=== PATIENT | female | born 1970 | race Caucasian/White ===

== ENCOUNTER 2021-12-26 12:43 | Emergency (ER) | payer BC, SELFPAY ==
[2021-12-26 13:20] VITALS: BP 126/78; PULSE 69; RESP 16; TEMP 37.4; O2SAT 98; BMI 18.8
[2021-12-26 13:23] VITALS: BP 112/62; PULSE 50; RESP 16; O2SAT 97
--- NOTE | 2021-12-26 14:16 | XR_ITS ---
WS: [id number] Abdomen series, Flat and upright 12/26/2021 Clinical Data: constipation Comparison: None. Findings: No free air is seen beneath the diaphragms. No abnormal intra-abdominal masses or calcifica tions are seen. There is a large amount of fecal material throughout the colon. The bladder is partly full. XR/XR abdomen min 2V [id number] Impression: Large amount of fecal material throughout colon.
[2021-12-26 14:44] LABS: Basophils # 0.1 10^3/uL (0.0-0.1); Basophils % 0.8 %; Eosinophils # 0.2 10^3/uL (0.0-0.8); Eosinophils % 2.3 %; Hemoglobin 14.2 g/dL (11.5-15.3); Lymphocytes # 1.6 10^3/uL (0.8-4.8); Lymphocytes % 20.7 %; Mean Corpuscular Hemoglobin 29.8 pg (28.0-34.0); Mean Corpuscular Volume 90.1 fl (81-99); Monocytes # 0.7 10^3/uL (0.2-0.9); Monocytes % 9.4 %; Neutrophils # 5.01 10^3/uL (1.8-7.7); Neutrophils % 66.4 %; Nucleated Red Blood Cells % 0 %; Platelet Count 289 10^3/cmm (130-400); Red Blood Count 4.77 10^6/uL (4.1-5.3); Red Cell Distribution Width 12.9 % (12.1-15.1); White Blood Count 7.5 10^3/uL (4.0-10.0)
--- NOTE | 2021-12-26 15:00 | CT_ITS ---
WS: [id number] CT ABDOMEN PELVIS TECHNIQUE: Noncontrast CT of the abdomen and pelvis with coronal and sagittal reformatted images. CLINICAL INFORMATION: abd fullness COMPARISON: None. DLP: 702.[address] scans at [facility] use at least one of these dose optimization techniques: automated e xposure control; mA and/or kV adjustment per patient size (includes targeted exams where dose is matc hed to clinical indication); or iterative reconstruction. FINDINGS: Slight bibasilar atelectasis. Tiny RIGHT greater than LEFT pleural effusions. Noncontrast liver is normal. Small RIGHT hepatic cyst. Noncontrast gallbladder appears normal. Noncon trast pancreas appears normal. Mild prominence of the proximal common bile duct measures 7 mm. This t apers normally distally. Noncontrast spleen is normal. Tiny esophageal hiatal hernia. Adrenal glands are normal. No hydronephrosis in either kidney. No obstructing renal or ureteral calculi. Tiny fat-containing umbilical hernia. Diastases of the rectus abdominis. Sigmoid constipation. Append ectomy clips RIGHT lower quadrant. Normal caliber abdominal aorta. Prior hysterectomy. CT/CT abdomen pelvis wo con [id number] IMPRESSION: 1. Tiny RIGHT greater than LEFT pleural effusions with bibasilar atelectasis. 2. Tiny esophageal hiatal hernia. 3. Mild prominence of the proximal common bile duct measuring 7 mm. This taper s normally distally. Normal noncontrast gallbladder. 4. Rectosigmoid constipation. 5. No other remarkable findings.
--- NOTE | 2021-12-26 15:03 | ED_ITS ---
HPI - General Adult General: Chief complaint: General Medical Stated complaint: can't use the restroom Time Seen by Provider: 12/26/21 14:18 History of Present Illness: Patient is a 51-year-old female history of 3 prior , hysterectomy presenting to the emergency room for evaluation of worsening constipation. Patient states that she was able to make 3 hard stool earlier this morning. Last stool movement was 5 days ago. Patient reports that she has abdominal fullness. Patient denies any vomiting fever chills, OR abdominal pain (contrary to what triage note stated). Patient has no other focal complaints including melena/medic easier. Patient has no urinary complain ts at this time. Patient took docusate, senna, enema without relief of symptoms. Onset: 2 weeks ago Duration: 2 weeks Location:home Severity:moderate Associated symptoms: Deny chest pain, dyspnea, nausea, rash, palpitations or vomiting Review of Systems Const: Denies: fever(s) or chills Eyes: Denies: change in vision ENMT: Denies: mouth pain Card: Denies: chest pain or palpitations Resp: Denies: dyspnea or non-productive cough GI: Reports: other (+decreased stoolling and constipation/ +abdominal fullness); Denies: abdominal pain, nausea, vomiting or diarrhea : Denies: dysuria Musc: Denies: extremity pain Skin/Breast: Denies: rash or new lesions Neuro: Denies: weakness in extremities Psych: Reports: other (Normal mood) Hemal/Lymph: Denies: easy bruising PFS ED PFSH: Medical History Constipation Surgical History H/O: hysterectomy Hx of section Social History Smoking and tobacco status: never smoked Alcohol intake: never Physical Exam Const: COMMON NORMALS: alert HENMT: COMMON NORMALS: atraumatic HEAD & SCALP: atraumatic MOUTH: moist mucous membranes not abnormal Eye: COMMON NORMALS: EOMs intact bilaterally and conjunctivae normal CONJUNCTIVA: Yes conjunctivae normal Neck/C-Spine: COMMON NORMALS: full ROM and supple Resp: COMMON NORMALS: normal respiratory effort and clear to auscultation bilaterally AUSCULTATION: clear to auscultation bilaterally Cardio: COMMON NORMALS: regular rate RATE: regular rate GI: COMMON NORMALS: Soft to palpation and non-tender PALPATION: Yes Soft to palpation OTHER: No focal TTP. NO guarding rebound, guarding, rigidity. No CVA tenderness to percussion. Neg Harrison/Neg McBurney's point tenderness, no suprabupic tenderness to palpation. Extremity: COMMON NORMALS: full ROM Neuro: SENSORIUM/ORIENTATION: Yes alert MOTOR EXAM: No Abnormal motor strength present and Other motor observations present (no focal motor deficits) Psych: COMMON NORMALS: speech normal SPEECH: Yes normal speech MOOD & AFFECT: Yes euthymic mood Course Vital Signs: Vital signs: Vital Signs Temperature 99.4 F 12/26/21 13:20 Pulse Rate 63 12/26/21 18:38 Respiratory Rate 16 12/26/21 18:38 Blood Pressure 127/82 12/26/21 18:38 Pulse Oximetry 99 12/26/21 18:38 [facility] [place] - General Adult Medical Decision Making 51-year-old female presenting to the emergency room with concerns of constipation. Stool. X-ray KUB showed large colonic stool burden. CT abdomen pelvis did not show any signs of stool for colitis. Patient is afebrile with WBC of 7.5K. Rx miralax, docusate, senna PRN constipation Disposition: Discharge. Patient counseled regarding diagnostic impression, treatment plan. Patient given ED strict return precautions to return for continuation, worsening, or development of new symptoms. Instructed to f/u w/ P CP regarding symptoms today. Patient verbalized understanding. Lab Data : 12/26/21 14:39 12/26/21 14:39 Radiology Impressions Abdomen X-Ray 12/26/21 14:16 Impression: Large amount of fecal material throughout colon. Abdomen/Pelvis CT 12/26/21 15:00 IMPRESSION: 1. Tiny RIGHT greater than LEFT pleural effusions with bibasilar atelectasis. 2. Tiny esophageal hiatal hernia. 3. Mild prominence of the proximal common bile duct measuring 7 mm. This tapers normally distally. Normal noncontrast gallbladder. 4. Rectosigmoid constipation. 5. No other remarkable findings. Gallbladder Ultrasound 12/26/21 16:34 IMPRESSION: Minimal dilation of the common bile duct at 7 mm which is most likely incidental corresponding to age related changes. Otherwise, no acute findings. Laboratory Results WBC 7.5 10^3/uL (4.0-10.0) 12/26/21 14:39 RBC 4.77 10^6/uL (4.1-5.3) 12/26/21 14:39 Hgb 14.2 g/dL (11.5-15.3) 12/26/21 14:39 Hct 43.0 % (37.0-47.0) 12/26/21 14:39 MCV 90.1 fl (81-99) 12/26/21 14:39 MCH 29.8 pg (28.0-34.0) 12/26/21 14:39 MCHC 33.0 g/dL (30.0-36.0) 12/26/21 14:39 RDW 12.9 % (12.1-15.1) 12/26/21 14:39 Plt Count 289 10^3/cmm (130-400) 12/26/21 14:39 MPV 10.0 fL (7.4-10.4) 12/26/21 14:39 Neut % (Auto) 66.4 % 12/26/21 14:39 Lymph % (Auto) 20.7 % 12/26/21 14:39 [place] % (Auto) 9.4 % 12/26/21 14:39 Eos % (Auto) 2.3 % 12/26/21 14:39 Baso % (Auto) 0.8 % 12/26/21 14:39 Neut # (Auto) 5.01 10^3/uL (1.8-7.7) 12/26/21 14:39 Lymph # (Auto) 1.6 10^3/uL (0.8-4.8) 12/26/21 14:39 [place] # (Auto) 0.7 10^3/uL (0.2-0.9) 12/26/21 14:39 Eos # (Auto) 0.2 10^3/uL (0.0-0.8) 12/26/21 14:39 Baso # (Auto) 0.1 10^3/uL (0.0-0.1) 12/26/21 14:39 Nucleated RBC % (auto) 0 % 12/26/21 14:39 Nucleated RBCs # 0.0 /100WBC 12/26/21 14:39 Sodium 140 mmol/L (136-145) 12/26/21 14:39 Potassium 4.6 mmol/L (3.5-5.1) 12/26/21 14:39 Chloride 100 mmol/L (98-107) 12/26/21 14:39 Carbon Dioxide 27 mmol/L (22-29) 12/26/21 14:39 Anion Gap 17.6 (5-19) 12/26/21 14:39 BUN 16 mg/dL (6-20) 12/26/21 14:39 Creatinine 0.6 mg/dL (0.5-0.9) 12/26/21 14:39 GFR Calculation 105.0 mL/min (90-130) 12/26/21 14:39 Glucose 95 mg/dL (65-115) 12/26/21 14:39 Calculated Osmolality 291 mOsm/kg (285-295) 12/26/21 14:39 Calcium 9.3 mg/dL (8.5-10.5) 12/26/21 14:39 Total Bilirubin 0.2 mg/dL (0.15-1.2) 12/26/21 14:39 AST 16 U/L (0-32) 12/26/21 14:39 ALT 12 U/L (0-33) 12/26/21 14:39 Alkaline Phosphatase 81 IU/L (35-105) 12/26/21 14:39 Total Protein 7.8 g/dL (6.6-8.7) 12/26/21 14:39 Albumin 4.7 g/dL (3.5-5.2) 12/26/21 14:39 Globulin 3.1 g/dL (1.3-4.6) 12/26/21 14:39 Lipase 16 U/L (13-60) 12/26/21 14:39 Urine Color Yellow (Yellow) 12/26/21 15:24 Urine Appearance Clear (CLEAR) 12/26/21 15:24 Urine pH 7 (5-7) 12/26/21 15:24 Ur Specific [place] 1.005 (1.005-1.030) 12/26/21 15:24 Urine Protein Neg (Negative) 12/26/21 15:24 Urine Glucose (UA) Norm (Normal) 12/26/21 15:24 Urine Ketones Negative (Negative) 12/26/21 15:24 Urine Blood Neg (Negative) 12/26/21 15:24 Urine Nitrate Negative (Negative) 12/26/21 15:24 Urine Bilirubin Neg (Negative) 12/26/21 15:24 Urine Urobilinogen Norm mg/dL (Negative) 12/26/21 15:24 Ur Leukocyte Esterase Negative (Negative) 12/26/21 15:24 Discharge Plan Discharge Patient Disposition: Home Clinical Impression: Constipation, Abdominal fullness Condition: Stable Prescriptions: New Miralax 17 gram/dose powder 8.5 g PO DAILY PRN (Reason: constipation) 28 Days Qty: 238 0RF Senna Lax 8.6 mg tablet 8.6 mg PO DAILY PRN (Reason: constipation) Qty: 60 0RF docusate sodium 250 mg capsule 250 mg PO DAILY PRN (Reason: constipation) 60 Days Qty: 60 0RF Discharge Orders: Discharge ED (Routine); Ordered 12/26/21 Ordered By: David Yoder Discharge Diet: Advance as tolerated Discharge Activity: Increase activity as tolerated Patient Instructions: Constipation (ED) Activity Restrictions/Additional Instructions: Consider the following 1. Whole grains, such as whole wheat bread and pasta, oatmeal, and bran flake cereals 2. Legumes, such as lentils, black beans, kidney beans, soybeans, and chickpeas 3. Fruits, such as berries, apples with the skin on, oranges, and pears 4. Vegetables, such as carrots, broccoli, green peas, and jason greens 5. Nuts, such as almonds, peanuts, and pecans Please drink plenty of water Please avoid: 1. Chips 2. Fast food 3. Meat 4. Prepared foods, such as some frozen meals and snack foods 5. Processed foods, such as hot dogs or some microwavable dinners Coding Level of Care Code ED Manager [employer] Fwd Exam Comprehensive
[2021-12-26 15:07] LABS: Alanine Aminotransferase 12 U/L (0-33); Albumin Level 4.7 g/dL (3.5-5.2); Alkaline Phosphatase 81 IU/L (35-105); Anion Gap 17.6 (5-19); Aspartate Amino Transferase 16 U/L (0-32); Blood Urea Nitrogen 16 mg/dL (6-20); Calcium 9.3 mg/dL (8.5-10.5); Carbon Dioxide 27 mmol/L (22-29); Chloride 100 mmol/L (98-107); Globulin 3.1 g/dL (1.3-4.6); Glucose 95 mg/dL (65-115); Lipase 16 U/L (13-60); Osmolality Calculated 291 mOsm/kg (285-295); Potassium 4.6 mmol/L (3.5-5.1); Sodium 140 mmol/L (136-145); Total Bilirubin 0.2 mg/dL (0.15-1.2); Total Protein 7.8 g/dL (6.6-8.7)
--- NOTE | 2021-12-26 15:15 | PC.NURSE ---
Patient states that her last bowel movement was today but it was very watery and not a substantial amount. She states last normal bowel movement was about 2 weeks ago.
[2021-12-26 15:45] LABS: Add Urine Microscopic? NO; Charge for UA Resulting for Rev
[2021-12-26 15:52] LABS: Bilirubin Urine Neg (Negative); Blood Urine Neg (Negative); Glucose Urine UA Norm (Normal); Ketones Urine Negative (Negative); Leukocyte Esterase Urine Negative (Negative); Nitrate Urine Negative (Negative); Protein Urine Neg (Negative); Specific Gravity, Urine 1.005 (1.005-1.030); Urine Appearance Clear (CLEAR); Urine Color Yellow (Yellow); Urobilinogen Urine Norm (Negative); pH Urine 7 (5-7)
--- NOTE | 2021-12-26 16:34 | USR_ITS ---
PROCEDURE INFORMATION: Exam: US Abdomen, Limited; Right Upper Quadrant Exam date and time: 12/26/2021 5:16 PM Age: 51 years old Clinical indication: Nausea; Patient HX: Woke up feeling ill this morning; Additional info: Cbd enlargement on CT, eval stone TECHNIQUE: Imaging protocol: Real time ultrasound of the abdomen with image documentation. Limited exam focused on the right upper quadrant. COMPARISON: CT abdomen pelvis wo con [id number] 12/26/2021 3:20 PM FINDINGS: Liver: Normal. No masses. Gallbladder: Normal. No gallstones. There is no gallbladder wall thickening. Biliary ducts: No evidence of stones. Minimal dilation of the common bile duct at 7 mm with normal distal tapering. Pancreas: Visualized pancreas is unremarkable. Right kidney: Right kidney measures 8.2 cm in length. No mass. No hydronephrosis. US/US gall bladder [id number] IMPRESSION: Minimal dilation of the common bile duct at 7 mm which is most likely incidental corresponding to age related changes. Otherwise, no acute findings.
[2021-12-26 18:38] VITALS: BP 127/82; PULSE 63; RESP 16; O2SAT 99
== END 2021-12-26 18:39 | disposition home or self-care (01) ==
PROVIDERS: Physician Assistant; Emergency Provider Emergency Medicine
DX: K59.00 Constipation, unspecified (principal); R14.0 Abdominal distension (gaseous)
CPT/HCPCS: 74019; 74176; 76705; 80053; 81003; 83690; 85025; 99285